=== PATIENT | female | born 1945 | race Caucasian/White ===

== ENCOUNTER 2018-03-03 19:23 | Emergency (ER) | payer MEDICARE, OTHER ==
[~2018-03-03] VITALS: Ht 157.5 cm; Wt 104.3 kg
[2018-03-03 19:30] VITALS: BP 154/72
--- NOTE | 2018-03-03 19:40 | NUR ---
BB FAMILY; "ABCESS ON BUTT X 2 MONTHS" PT AOX3 HEBREW SPEAKING. DAUGHTER AT BEDSIDE. RR EVEN AND UNLABORED. NO SOB NOTED. NAD NOTED. NO NVD AT THIS TIME. PT GOWNED AND PLACED ON MONTIOR WAITING FOR MD BLACK.
--- NOTE | 2018-03-03 19:58 | NUR ---
REPORT GIVEN TO MIRYAM MITCHELL FOR LETTY.
== END 2018-03-03 20:35 | disposition home or self-care (01) ==
LOC: ER 19:27
DX: L89.322 Pressure ulcer of left buttock, stage 2 (principal); L89.312 Pressure ulcer of right buttock, stage 2; I10 Essential (primary) hypertension; Z88.0 Allergy status to penicillin
CPT/HCPCS: A4606; A6402; Z7610

== ENCOUNTER 2022-06-16 14:06 | Outpatient (CLI) | payer MEDICARE, OTHER ==
[2022-06-16 15:42] LABS: CREATINE KINASE, TOTAL 53 U/L (26-192)
[2022-06-16 15:52] LABS: C-REACTIVE PROTEIN 4.8 mg/dL (0.0-0.9)
[2022-06-16 16:23] LABS: ALANINE AMINOTRANSFERASE 19 U/L (12-78); ALBUMIN 2.9 g/dL (3.4-5.0); ALKALINE PHOSPHATASE 84 U/L (46-116); ASPARTATE AMINOTRANSFERASE 23 U/L (15-37); BILIRUBIN,TOTAL 0.2 mg/dL (0.2-1.0); CALCIUM, SERUM 8.7 mg/dL (8.5-10.1); CARBON DIOXIDE 27 mmol/L (21-32); CHLORIDE 98 mmol/L (98-107); CREATININE 1.6 mg/dL (0.6-1.3); GLUCOSE 137 mg/dL (74-106); POTASSIUM 4.5 mmol/L (3.5-5.1); SODIUM SERUM 136 mmol/L (136-145); TOTAL PROTEIN, SERUM 7.8 g/dL (6.4-8.2); UREA NITROGEN, BLOOD 23 mg/dL (7-18)
[2022-06-17 17:06] LABS: *ANA ANTI-CENTROMERE B AB <0.2 AI (0.0-0.9); *ANA ANTI-DNA(DS) AB, QN <1 IU/mL (0-9); *ANA ANTI-JO-1 <0.2 AI (0.0-0.9); *ANA ANTICHROMATIN ANTIBODY <0.2 AI (0.0-0.9); *ANA RNP ANTIBODIES <0.2 AI (0.0-0.9); *ANA SJOGREN'S ANTI-SS-A <0.2 AI (0.0-0.9); *ANA SJOGREN'S ANTI-SS-B <0.2 AI (0.0-0.9); *ANAANTI-SCLERODERMA-70 AB <0.2 AI (0.0-0.9); *ANASMITH AB <0.2 AI (0.0-0.9)
[2022-06-19 12:07] LABS: *ANCA ATYPICAL p-ANCA <1:20 titer (Neg:<1:20)
== END 2022-06-16 23:59 | disposition home or self-care (01) ==
LOC: LAB 14:06
PROVIDERS: ATTEND Internal Medicine Interventional Cardiology
DX: G72.89 Other specified myopathies (principal); M13.80 Other specified arthritis, unspecified site
CPT/HCPCS: 36415; 80053-TC; 82550-TC; 83520; 85652-TC; 86140-TC; 86225; 86235; 86256; 86431-TC